=== PATIENT | female | born 1995 | race Two or more races ===

== ENCOUNTER 2018-09-22 14:37 | Inpatient (IN) | payer OTHER ==
[~2018-09-22] VITALS: Ht 177.8 cm; Wt 136.1 kg
== END 2018-10-12 13:11 | disposition home or self-care (01) | DRG 788 ==
LOC: OB/GYN 09-29 15:00 → LDR 10-09 11:06 → OB/GYN 10-09 11:06
PROVIDERS: ADMIT Obstetrics & Gynecology
PROC: 4A1HXCZ Monitoring of Products of Conception, Cardiac Rate, External Approach (ICD-10-PCS; 2018-10-09)
PROC: 4A033R1 Measurement of Arterial Saturation, Peripheral, Percutaneous Approach (ICD-10-PCS; 2018-10-09)
PROC: 10D00Z1 Extraction of Products of Conception, Low, Open Approach (ICD-10-PCS; principal; 2018-10-09 19:00)
DX: O33.8 Maternal care for disproportion of other origin (principal); Z3A.39 39 weeks gestation of pregnancy; Z37.0 Single live birth

== ENCOUNTER 2018-10-02 10:53 | Outpatient (CLI) | payer OTHER | END 2018-10-02 18:12 | disposition home or self-care (01) | LOC: OBS/DEL 10:53 | DX: O26.893 Other specified pregnancy related conditions, third trimester (principal); E16.1 Other hypoglycemia; Z34.03 Encounter for supervision of normal first pregnancy, third trimester ==